=== PATIENT | female | born 1960 | race Caucasian/White ===

== ENCOUNTER 2023-06-02 11:22 | Emergency (ER) | payer OTHER, SELFPAY ==
[2023-06-02 11:36] VITALS: BP 138/75; PULSE 87; RESP 18; TEMP 36.3; O2SAT 100
[2023-06-02] MEDS: KETOROLAC (*BKC) 60 MG/2 ML VIAL IM (12:28)
--- NOTE | 2023-06-02 12:54 | ED.BACK ---
HPI - Back Pain/Injury General Chief Complaint: Back Pain/Injury Stated Complaint: BACK PAIN Time Seen by Provider: 06/02/23 11:42 Source: patient, RN notes reviewed and old records reviewed Mode of arrival: ambulatory Limitations: no limitations History of Present Illness HPI Narrative: 63-year-old female to [facility] with complaint of lumbar back pain radiating to bilateral buttocks for 1 week. Patient endorses that she has been helping her elderly parents move and believes that she strained her back. Patient endorses history of lumbar spine arthritis. Patient has attempted to treat at home with Tylenol and ibuprofen with little relief. Denies numbness, tingling, weakness to lower extremities. Related Data Home Medications Medication Instructions Recorded Confirmed estradiol 0.01% (0.1 mg/gram) 1 applic vaginal PRN PRN 06/02/23 06/02/23 vaginal cream Menopausal Symptoms ezetimibe 10 mg tablet 10 mg PO DAILY 06/02/23 06/02/23 levothyroxine 88 mcg tablet 88 mcg PO DAILY 06/02/23 06/02/23 nortriptyline 25 mg capsule 25 mg PO DAILY 06/02/23 06/02/23 Allergies Allergy/AdvReac Type Severity Reaction Status Date / Time cephalexin Allergy Mild Rash Verified 06/02/23 11:34 nitrofurantoin Allergy Mild Rash Verified 06/02/23 11:34 sulfamethoxazole Allergy Mild Rash Verified 06/02/23 11:34 trimethoprim Allergy Mild Rash Verified 06/02/23 11:34 amoxicillin [From Augmentin] Allergy Rash Verified 06/02/23 12:36 avobenzone [From Rosac] Allergy Itching Verified 06/02/23 12:38 azithromycin Allergy Rash Verified 06/02/23 12:37 clavulanic acid Allergy Rash Verified 06/02/23 12:36 [From Augmentin] levofloxacin Allergy Unknown Verified 06/02/23 12:38 moxifloxacin [From Avelox] Allergy Rash Verified 06/02/23 12:36 rosuvastatin [From Crestor] Allergy Muscle Pain Verified 06/02/23 12:37 sulfacetamide [From Rosac] Allergy Itching Verified 06/02/23 12:38 sulfur [From Rosac] Allergy Itching Verified 06/02/23 12:38 topiramate [From Topamax] Allergy Itching Verified 06/02/23 12:39 HESTAMIL Allergy Mild Rash Uncoded 06/02/23 11:34 MOXIFLOXACIN HCL Allergy Mild Rash Uncoded 06/02/23 11:34 Review of Systems Review of Systems: All systems reviewed & are unremarkable except as noted in HPI and below Constitutional: Constitutional: Reports no additional constitutional complaints Eyes: Eyes: Reports no additional eye complaints ENT: Reports system reviewed and no additional complaints, except as documented Cardiovascular: Cardiovascular: Reports no additional cardiovascular complaints, Denies chest pain and Denies dyspnea Respiratory: Respiratory: Reports no additional respiratory complaints, Denies cough and Denies dyspnea Musculoskeletal: Musculoskeletal: Reports as per HPI, Reports back pain and Denies radiating pain into limb Neurologic: Reports system reviewed and no additional complaints, except as documented Psychiatric: Psychiatric: Reports no additional psychiatric complaints PMFSH Comments At the time of my signature, I reviewed and agree with the nursing past medical, surgical, social, and family history. There is no relevant family history pertinent to the patient complaint. Exam Const: General: cooperative, healthy appearing, comfortable, no acute distress, alert and well nourished Nutritional Appearance: well nourished Orientation/consciousness: patient oriented x3 Limitations: no limitations HENMT: Head: normal to inspection Ears: external ears normal Face/Nose/Sinus: Normal external nose present, Normal nares present, normal facial exam, No erythema and No edema Face and sinus: normal facial exam, no erythema and no edema Mouth: Yes Normal oral and palatal mucosa present Eyes: General: appearance normal, both eyes and all related structures Neck: Neck: normal visual inspection, full ROM and no meningeal signs Lymphatic: no lymphadenopathy noted and no lymphedema noted Chest: Chest palpation & insp
== END 2023-06-02 12:57 | disposition home or self-care (01) ==
PROVIDERS: Emergency Provider Nurse Practitioner Family
DX: S39.012A Strain of muscle, fascia and tendon of lower back, initial encounter (principal); Z79.899 Other long term (current) drug therapy; X58.XXXA Exposure to other specified factors, initial encounter
CPT/HCPCS: 96372; 99213; G0463; J1885